=== PATIENT | male | born 1955 | race Caucasian/White ===

== ENCOUNTER 2022-02-09 13:16 | Outpatient (REF) | payer OTHER, SELFPAY ==
--- NOTE | ~2022-02-09 | XR_ITS ---
EXAMINATION: XR SOFT TISSUE NECK CLINICAL INDICATION: Localized enlarged lymph nodes COMPARISON: None TECHNIQUE: 2 views of the soft tissue neck were obtained. FINDINGS: There are unremarkable soft tissues. Visualized airways are patent. Visualized paranasal sinuses are well aerated. Partially visualized cervical spine reveal straightening of cervical lordosis and narrowing of C5-C6 intervertebral disc space. Most of the 6 and 7 cervical spine not seen due to highly positioned shoulders. XR/XR soft tissue neck IMPRESSION: Degenerative changes of cervical spine no abnormal findings in the soft tissues.
[2022-02-09 15:46] LABS: Hemoglobin 16.6 g/dl (14.0-18.0); Mean Corpuscular HGB Conc 36.9 g/dl (31.0-36.0); Mean Corpuscular Hemoglobin 33.9 pg (27.0-33.0); Mean Platelet Volume 11.2 fL (9.4-12.4); Platelet Count 194 X10*3/uL (160-400); Red Blood Count 4.89 X10*6/uL (4.60-5.80); Red Cell Distribution Width 12.4 % (11.0-16.0); White Blood Count 7.5 X10*3/uL (4.8-10.8)
[2022-02-09 16:13] LABS: Alanine Aminotransferase 80 U/L (0-40); Albumin Level 4.6 g/dL (3.5-5.0); Alkaline Phosphatase 69 U/L (39-117); Anion Gap 17 (12-20); Aspartate Amino Transferase 83 U/L (5-37); Bilirubin Total 1.1 mg/dL (0.0-1.0); Blood Urea Nitrogen 13 mg/dL (9-16); Calcium 9.5 mg/dL (8.4-10.2); Carbon Dioxide 21 mmol/L (22-29); Chloride 104 mmol/L (96-108); Cholesterol 397 mg/dL; Estimated Glomerular Filt Rate > 60; Glucose Fasting 100 mg/dL (60-99); HDL Cholesterol 40 mg/dL; LDL Cholesterol Calculated 314 mg/dl; Potassium 4.3 mmol/L (3.3-5.1); Sodium 138 mmol/L (135-145); Total Protein 7.7 g/dL (6.5-8.0); Triglycerides 215 mg/dL
[2022-02-09 16:20] LABS: Creatinine Urine 333.63 mg/dL; Microalbum/Creatinine Ratio Ur 92.9 ug/mg cr
[2022-02-09 16:38] LABS: TSH reflex Free T4 1.45 uIU/mL (0.32-4.0)
[2022-02-11 08:45] LABS: HBc Num1 0.07 S/CO (0.00-0.79); Hepatitis B Core Antibody Nonreactive (Nonreactive); Hepatitis B Surface Antigen Negative (Negative); ~HepC Num1 0.11 S/CO (0.00-0.79); ~Hepatitis C Antibody Nonreactive (Nonreactive)
[2022-02-11 09:08] LABS: HBS Num1 4.92 mIU/mL (0-7.99); ~Hepatitis B Surface Antibody NONREACTIVE (Nonreactive)
== END 2022-02-09 13:17 | disposition home or self-care (01) ==
LOC: HO.HMGCLDS 13:16
PROVIDERS: PCP Physician Assistant; Visit Provider Physician Assistant
DX: R59.0 Localized enlarged lymph nodes (principal); I10 Essential (primary) hypertension; E66.09 Other obesity due to excess calories; Z13.220 Encounter for screening for lipoid disorders; Z11.3 Encounter for screening for infections with a predominantly sexual mode of transmission; Z68.31 Body mass index [BMI] 31.0-31.9, adult; Z13.29 Encounter for screening for other suspected endocrine disorder; Z12.5 Encounter for screening for malignant neoplasm of prostate
CPT/HCPCS: 36415; 70360; 80053; 80061; 82043; 84153; 84443; 85027; 86704; 86706; 86803; 87340